=== PATIENT | female | born 1980 | race Asian ===

== ENCOUNTER 2017-12-10 21:49 | Emergency (ER) | payer OTHER ==
[~2017-12-10] VITALS: Ht 152.4 cm; Wt 64.9 kg
[2017-12-10 22:01] VITALS: Ht 152.4 cm; Wt 64.9 kg
[2017-12-10 23:29] LABS: BASOPHIL % 0.5 % (0-2); PLATELET COUNT 219 x10^3mcL (130-400); RED CELL DISTRIBUTION WIDTH 13.2 % (11.5-14.5)
[2017-12-10 23:34] LABS: CALCIUM 8.1 mg/dL (8.5-10.1); CHLORIDE SERUM 103 mmol/L (98-107); CREATININE SERUM 0.6 mg/dL (0.6-1.0); GFR1 > 60 mL/min; GLUCOSE SERUM 129 mg/dL (74-106); POTASSIUM SERUM 3.5 mmol/L (3.5-5.1); SODIUM SERUM 137 mmol/L (136-145)
[2017-12-10 23:38] LABS: ALBUMIN 3.7 g/dL (3.4-5.0); ALKALINE PHOSPHATASE 111 U/L (46-116); ALT/SGPT 29 U/L (14-59); AST/SGOT 17 U/L (15-37); BILIRUBIN TOTAL 0.7 mg/dL (0.20-1.00); LIPASE 103 IU/L (73-393); TOTAL PROTEIN, SERUM 7.8 g/dL (6.4-8.2)
[2017-12-11 00:47] LABS: microscopic required? YES; urine erythrocyte 1+ (NEGATIVE)
[2017-12-11 03:20] VITALS: BP 105/64
== END 2017-12-11 03:20 | disposition home or self-care (01) ==
LOC: ED 21:49
PROVIDERS: Emergency Medicine
DX: N39.0 Urinary tract infection, site not specified (principal); J45.909 Unspecified asthma, uncomplicated; E11.9 Type 2 diabetes mellitus without complications; Z90.49 Acquired absence of other specified parts of digestive tract; Z88.6 Allergy status to analgesic agent
CPT/HCPCS: J2270; J2765; J7030

== ENCOUNTER 2018-05-20 14:03 | Emergency (ER) | payer OTHER ==
[~2018-05-20] VITALS: Ht 157.5 cm; Wt 66.7 kg
[2018-05-20 14:12] VITALS: Ht 157.5 cm; Wt 66.7 kg
[2018-05-20 18:19] LABS: BASOPHIL % 0.2 % (0-2); PLATELET COUNT 223 x10^3mcL (130-400); RED CELL DISTRIBUTION WIDTH 12.9 % (11.5-14.5)
[2018-05-20 18:27] LABS: CALCIUM 8.8 mg/dL (8.5-10.1); CHLORIDE SERUM 101 mmol/L (98-107); CREATININE SERUM 0.8 mg/dL (0.6-1.0); GFR1 > 60 mL/min; GLUCOSE SERUM 138 mg/dL (74-106); SODIUM SERUM 138 mmol/L (136-145)
[2018-05-20 18:33] LABS: ALKALINE PHOSPHATASE 124 U/L (46-116); ALT/SGPT 72 U/L (14-59); AST/SGOT 32 U/L (15-37); BILIRUBIN TOTAL 0.7 mg/dL (0.20-1.00); LIPASE 104 IU/L (73-393)
[2018-05-20 18:36] LABS: TOTAL PROTEIN, SERUM 8.5 g/dL (6.4-8.2)
[2018-05-20 19:16] VITALS: BP 118/73
== END 2018-05-20 19:16 | disposition home or self-care (01) ==
LOC: ED 14:03
PROVIDERS: Emergency Medicine
DX: K52.9 Noninfective gastroenteritis and colitis, unspecified (principal); J45.909 Unspecified asthma, uncomplicated; E11.9 Type 2 diabetes mellitus without complications; Z90.49 Acquired absence of other specified parts of digestive tract; Z88.6 Allergy status to analgesic agent
CPT/HCPCS: J2405

== ENCOUNTER 2018-07-23 12:17 | Emergency (ER) | payer OTHER ==
[~2018-07-23] VITALS: Ht 157.5 cm; Wt 68.2 kg
[2018-07-23 12:50] VITALS: Ht 157.5 cm; Wt 68.2 kg
[2018-07-23 15:31] LABS: microscopic required? YES; urine erythrocyte 3+ (NEGATIVE)
[2018-07-23 15:56] VITALS: BP 106/58
== END 2018-07-23 15:56 | disposition home or self-care (01) ==
LOC: ED 12:17
PROVIDERS: Specialist
DX: N39.0 Urinary tract infection, site not specified (principal); J45.909 Unspecified asthma, uncomplicated; E11.9 Type 2 diabetes mellitus without complications; Z88.6 Allergy status to analgesic agent; Z90.49 Acquired absence of other specified parts of digestive tract; Z98.890 Other specified postprocedural states; Z98.51 Tubal ligation status
CPT/HCPCS: J0696